=== PATIENT | female | born 1985 | race Caucasian/White ===

== ENCOUNTER 2017-10-23 22:56 | Emergency (ER) | payer OTHER ==
[~2017-10-23] VITALS: Ht 170.2 cm; Wt 129.8 kg
[~2017-10-23 22:56] MED LIST: ATIVAN0.5 MG PO; BUSPIRONE HCL10 MG PO; EFFEXOR XR150 MG PO; ENDOCET 5-3251 EACH PO; GLUCOPHAGE500 MG PO; HYDROCODON-ACE1 EAC7 PO; KEFLEX500 MG PO; LEXAPRO10 MG PO; MOTRIN800 MG PO; OMEPRAZOLE20 MG PO; PERCOCET 5/31 TABLET PO; PROZAC10 MG PO; TOPAMAX50 MG PO; YAZ 28 TABLET1 EACH PO; ZOFRAN ODT4 MG PO; ZOFRAN4 MG PO
[2017-10-23 23:21] VITALS: BP 172/115
== END 2017-10-24 00:15 | disposition left against medical advice (07) ==
LOC: EME 22:56
DX: R51 Headache (principal); Z53.21 Procedure and treatment not carried out due to patient leaving prior to being seen by health care provider